=== PATIENT | female | born 1995 | race Two or more races ===

== ENCOUNTER 2021-02-14 08:00 | Outpatient (CLI) | payer OTHER | END 2021-02-14 08:30 | disposition home or self-care (01) | LOC: PPH VACUNA 08:00 | PROVIDERS: ATTEND Emergency Medicine Pediatric Emergency Medicine | DX: Z23 Encounter for immunization (principal) ==

== ENCOUNTER 2021-03-20 16:03 | Emergency (ER) | payer OTHER ==
[~2021-03-20] VITALS: Ht 162.6 cm; Wt 63.5 kg
== END 2021-03-20 19:01 | disposition home or self-care (01) ==
LOC: ER 16:03
DX: A49.3 Mycoplasma infection, unspecified site (principal); Z20.822 Contact with and (suspected) exposure to COVID-19

== ENCOUNTER 2021-04-14 15:40 | Outpatient (CLI) | payer OTHER | END 2021-04-14 15:55 | disposition home or self-care (01) | LOC: PPH VACUNA 15:40 | PROVIDERS: ATTEND Emergency Medicine Pediatric Emergency Medicine | DX: Z23 Encounter for immunization (principal) ==

== ENCOUNTER 2021-06-15 17:04 | Emergency (ER) | payer OTHER ==
[~2021-06-15] VITALS: Ht 160 cm; Wt 65.8 kg
== END 2021-06-15 21:10 | disposition home or self-care (01) ==
LOC: ER 17:04
DX: K52.9 Noninfective gastroenteritis and colitis, unspecified (principal); E86.0 Dehydration; Z20.822 Contact with and (suspected) exposure to COVID-19

== ENCOUNTER 2022-03-01 08:35 | Outpatient (CLI) | payer OTHER | END 2022-03-01 08:45 | disposition home or self-care (01) | LOC: PPH VACUNA 08:35 | PROVIDERS: ATTEND Emergency Medicine Pediatric Emergency Medicine | DX: Z23 Encounter for immunization (principal) ==

== ENCOUNTER 2022-05-28 08:33 | Emergency (ER) | payer OTHER ==
[~2022-05-28] VITALS: Ht 160 cm; Wt 61.2 kg
[2022-05-28] MEDS ORDERED: BACTRIM DS TAB1 EACH PO (10:38)
== END 2022-05-28 11:00 | disposition home or self-care (01) ==
LOC: ER 08:33
DX: R11.2 Nausea with vomiting, unspecified (principal)